=== PATIENT | male | born 1960 | race Caucasian/White ===

== ENCOUNTER → 2017-01-18 | Emergency (ER) | payer BC ==
[~2017-01-18] VITALS: Ht 170.2 cm; Wt 96.2 kg
[~2017-01-18] MED LIST: COZAAR100 MG PO; DOXYCYCLINE HY100 MG PO; FLOMAX0.4 MG PO; INDERAL LA60 MG PO; PERCOCET 5-3251 EACH PO; PROPRANOLOL HCL10 MG PO; TRAVATAN Z5 ML OPTH
--- NOTE | 2017-01-18 05:51 | EKG ---
[facility] [address] [facility] [place], [place] [address] Signed Normal sinus rhythm Normal ECG No previous ECGs available Confirmed by MARTIN NOBLES MD ([id number] on 01/18/2017 5:51:04 AM Electronically Signed By: MARTIN NOBLES MD 01/18/17 0551 PATIENT NAME: JIM SANDERS Electrocardiogram DATE OF : 56 PHYSICIAN: MARTIN NOBLES MD REPORT #: [id number] REPORT IS CONFIDENTIAL AND NOT TO BE RELEASED WITHOUT AUTHORIZATION
== END ==
LOC: ED 00:41
DX: I20.0 Unstable angina (principal); I10 Essential (primary) hypertension; E78.00 Pure hypercholesterolemia, unspecified; Z87.442 Personal history of urinary calculi; Z87.891 Personal history of nicotine dependence; Z90.89 Acquired absence of other organs; Z88.8 Allergy status to other drugs, medicaments and biological substances; Z79.899 Other long term (current) drug therapy
CPT/HCPCS: 71010; 80053; 84484; 85025; 85610; 85730; 93005; 93010; 96374; 96375; 99285; J1644; J2270; J2405

== ENCOUNTER 2021-03-07 14:20 | Emergency (ER) | payer BC ==
[~2021-03-07] VITALS: Ht 170.2 cm; Wt 96.2 kg
--- OUTSIDE RECORDS SUMMARY | 2021-03-07 14:22 | XMS ---
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 Young has no Care Guidelines for this patient. Angelica VISIT COUNT (12 MO.) 1 DARRON Domínguez TOTAL 1 NOTE: Visits indicate total known visits. ED/C VISIT TRACKING (12 MO.) 03/07/2021 14:20 [facility] [place] TYPE: Emergency COMPLAINT: - FLU SYMPTOMS INPATIENT VISIT TRACKING (12 MO.) No inpatient visits to display in this time frame [id number]
[2021-03-07] MEDS ORDERED: SIMBRINZA 1%-0.28 ML OPTH (14:39)
[2021-03-07] MEDS ORDERED: ADULT LOW DOSE81 MG PO (14:40)
== END 2021-03-07 16:40 | disposition home or self-care (01) ==
LOC: ED 14:20
DX: U07.1 COVID-19 (principal); I10 Essential (primary) hypertension; E78.00 Pure hypercholesterolemia, unspecified; I25.2 Old myocardial infarction; Z87.891 Personal history of nicotine dependence; Z88.8 Allergy status to other drugs, medicaments and biological substances; Z79.899 Other long term (current) drug therapy; Z79.82 Long term (current) use of aspirin
CPT/HCPCS: 99283-25; M0243; Q0244